=== PATIENT | female | born 1945 | race Caucasian/White ===

== ENCOUNTER → 2017-01-05 | Outpatient (CLI) | payer MEDICARE, BC | LOC: LKCL 14:23 | DX: K59.1 Functional diarrhea (principal) ==

== ENCOUNTER → 2017-03-03 | Outpatient (CLI) | payer MEDICARE, OTHER ==
--- NOTE | ~2017-03-03 | PUL ---
PATIENT'S NAME: YENIFER SELF [facility] AGE: 72 Y [address] ROOM: [place] [address] LOCATION: [facility] ADMIT DATE: 03/03/2017 Pulmonary DISCHARGE DATE: FAMILY PHYSICIAN: Viktor Chacko MD ATTENDING PHYSICIAN: Viktor Chacko NAME OF PROCEDURE: Home sleep test DATE OF PROCEDURE: 03/03/2017 TECH: Hussein Uribe [facility] SUMMARY: Patient underwent home sleep testing using a type III device and was studied for 7 hours 50 minutes. In that time there were 11 apneas and 17 hypopneas for an apnea/hypopnea index normal at 3.6 events per hour. Oxygen saturations ranged from 85-93% and saturations were below 88% for fewer than 5 minutes. Heart rate ranged from 56 to 101 beats per minute. IMPRESSION: Normal home sleep test. PLAN: Patient will receive results from the ordering provider. MD BEREKET HARDING/ /[id number] dtt: 03/12/17 0948 Shannan David E. dtd: 03/08/17 1551
== END | disposition disaster alternative care site (69) ==
LOC: GSLP 03-01 11:29
DX: G47.10 Hypersomnia, unspecified (principal); R53.83 Other fatigue; R06.83 Snoring; R40.0 Somnolence
CPT/HCPCS: G0399